=== PATIENT | male | born 1965 | race Caucasian/White ===

== ENCOUNTER 2019-05-04 23:12 | Emergency (ER) | payer BC ==
[~2019-05-04] VITALS: Ht 167.6 cm; Wt 124.7 kg
[2019-05-04 23:15] VITALS: BP 117/64
--- NOTE | 2019-05-04 23:15 | NUR ---
ED Nurse Note: Patient BIBA RA41 from home c/o SOB. Per EMS, albuterol given en route. Noted with wheezes on bilateral lungs more on the left side. Pt is a smoker. Not in any distress. 98% RA. Pt placed on monitor and storage bin tender. ERMD at bedside. Will cont to monitor.
--- NOTE | 2019-05-04 23:17 | NUR ---
ED Nurse Note: IV line established. Blood specimen collected and sent to lab.
--- NOTE | 2019-05-04 23:19 | Emergency Room Report ---
History of Present Illness General Chief Complaint: Upper Respiratory Illness Source: Patient Present Illness [facility] This a 54-year-old male with no past medical history. He is a long-term smoker. Started 2016. Usually smokes a pack and a half a day. He presents with chief complaint of shortness of breath. He woke up short of breath and could not breathe. He called 911. Per EMS he was dyspneic and oxygenation was 90%. Slight wheezing. He was given a breathing treatment. He said he felt better now. He uses his brothers [employer]. It did not help today. He said before when he had problem it would help. No nausea no vomiting. No fever chills but no chest pain. Worse with exertion. Worse with lying flat. Better after breathing treatment. Allergies: Coded Allergies: No Known Allergies (Unverified , 05/04/19) Patient History Past Medical History: see triage record, old chart reviewed Past Surgical History: none Pertinent Family History: none Social History: Reports: smoking Immunizations: other Reviewed Nursing Documentation: PMH: Agreed; PSxH: Agreed Nursing Documentation-PMH Past Medical History: No Stated History Review of Systems Eye: Denies: eye pain, blurred vision ENT: Denies: ear pain, nose congestion, throat swelling Respiratory: Reports: shortness of breath; Denies: cough Cardiovascular: Denies: chest pain, palpitations Gastrointestinal: Denies: abdominal pain, diarrhea, nausea, vomiting Musculoskeletal: Denies: back pain, joint pain Skin: Denies: rash Neurological: Denies: headache, numbness Endocrine: Denies: increased thirst, increased urine Hematologic/Lymphatic: Denies: easy bruising All Other Systems: negative except mentioned in HPI Physical Exam Vital Signs Date Time Temp Pulse Resp B/P (MAP) Pulse Ox O2 Delivery O2 Flow Rate FiO2 05/04/19 23:12 98.4 108 16 150/116 (127) 95 Room Air Vitals with high blood pressure Sp02 EP Interpretation: reviewed, normal General Appearance: well appearing, alert, mild distress, obese Head: normocephalic, atraumatic Eyes: bilateral eye PERRL, bilateral eye EOMI ENT: hearing grossly normal, normal pharynx Neck: full range of motion, supple, no meningismus Respiratory: chest non-tender, decreased breath sounds, accessory muscle use, wheezing - Slight Cardiovascular #1: regular rate, rhythm, no murmur Gastrointestinal: normal bowel sounds, non tender, no mass, no organomegaly, no bruit, non-distended Musculoskeletal: back normal, normal range of motion, gait/station normal, swelling - Trace pitting edema Psychiatric: mood/affect normal Medical Decision Making Diagnostic Impression: Primary Impression: COPD with exacerbation Additional Impression: Diabetes mellitus, new onset ER Course Patient with coughing and wheezing. Better after breathing treatment. Oxygenation normal. No longer wheezing. Heart rate normalized. I see no evidence of ACS, PE, dissection to name a few. He does appear to have new onset diabetes. He has glucose in his urine and glucose is elevated in the blood. No evidence of endorgan damage. No evidence of DKA. His blood pressure is normal now. Will discharge home. EKG Diagnostic Results Rate: tachycardiac Rhythm: NSR ST Segments: no acute changes Rhythm Strip Diag. Results Rate: 98 Rhythm: NSR, no PVC's Chest X-Ray Diagnostic Results Chest X-Ray Diagnostic Results : Chest X-Ray Ordered: Yes # of Views/Limited/Complete: 1 View Indication: Shortness of Breath EP Interpretation: Yes Interpretation: no consolidation, no effusion, no pneumothorax, no acute cardiopulmonary disease Impression: No acute disease Electronically Signed by: Romero Chacon MD Last Vital Signs Date Time Temp Pulse Resp B/P (MAP) Pulse Ox O2 Delivery O2 Flow Rate FiO2 05/04/19 23:12 98.4 108 16 150/116 (127) 95 Room Air Status: improved Disposition: HOME, SELF-CARE Condition: Stable Scripts Prednisone* (PREDNISONE*) 20 Mg Tablet 40 MG ORAL DAILY, #10 TAB Prov: Romero Chacon MD 05/05/19 Metformin Hcl* (METFORMIN HCL*) 500 Mg Tablet 500 MG ORAL TWICE A DAY, #60 TAB Prov: Romero Chacon MD 05/05/19 Albuterol Sulfate* (ALBUTEROL SULFATE MDI*) 8.5 Gm Hfa.aer.ad 2 PUFF INH Q4H PRN for cough/wheezing, #1 EA 0 Refills Prov: Romero Chacon MD 05/05/19 Additional Instructions: Follow-up with your doctor in 7 days. Return if symptoms worsen. Stop smoking. Romero Chacon MD May 04, 2019 23:19
--- NOTE | 2019-05-04 23:25 | NUR ---
ED Nurse Note: Xray at bedside.
[2019-05-04] MEDS ORDERED: Ipratropium 0.02% Inh Soln 2.5ml UD HHN ONE (23:30)
[2019-05-04] MEDS ORDERED: Albuterol ud Inhalation HHN ONE (23:30)
[2019-05-04] MEDS ORDERED: Solu-MEDROL 125mg Inj IVP ONE (23:30)
--- NOTE | 2019-05-04 23:31 | NUR ---
ED Nurse Note: RT at bedside for breathing tx.
[2019-05-04 23:36] LABS: BASOPHILS % (AUTO) 1.7 % (0.0-2.0); EOSINOPHILS % (AUTO) 4.6 % (0.0-3.0); HEMATOCRIT 40.3 % (42.0-52.0); HEMOGLOBIN 14.6 G/DL (14.2-18.0); LYMPHOCYTES % (AUTO) 23.6 % (20.0-45.0); MEAN CORPUSCULAR VOLUME 82 FL (80-99); MONOCYTES % (AUTO) 3.9 % (1.0-10.0); NEUTROPHILS % (AUTO) 66.2 % (45.0-75.0); PLATELET COUNT 292 K/UL (150-450); RED BLOOD COUNT 4.89 M/UL (4.70-6.10); RED CELL DISTRIBUTION WIDTH 10.8 % (11.6-14.8); WHITE BLOOD COUNT 9.1 K/UL (4.8-10.8)
[2019-05-04 23:47] LABS: ANION GAP 12 mmol/L (5-15); BLOOD UREA NITROGEN 14 mg/dL (7-18); CALCIUM 8.4 MG/DL (8.5-10.1); CARBON DIOXIDE 25 MMOL/L (21-32); CHLORIDE 101 MMOL/L (98-107); POTASSIUM 3.3 MMOL/L (3.5-5.1); SODIUM 138 MMOL/L (136-145)
[2019-05-04 23:59] LABS: ALANINE AMINOTRANSFERASE 27 U/L (12-78); ALBUMIN 3.1 G/DL (3.4-5.0); ALBUMIN/GLOBULIN RATIO 0.7 (1.0-2.7); ALKALINE PHOSPHATASE 87 U/L (46-116); ASPARTATE AMINO TRANSFERASE 20 U/L (15-37); BILIRUBIN,TOTAL 0.3 MG/DL (0.2-1.0)
[2019-05-05] MEDS ORDERED: Mylanta II UD 30ml ORAL ONE
--- NOTE | 2019-05-05 00:01 | NUR ---
ED Nurse Note: Urine specimen collected and sent to lab.
[2019-05-05 00:03] LABS: APPEARANCE,URINE CLEAR; BILIRUBIN, URINE NEGATIVE (NEGATIVE); GLUCOSE, URINE (UA) 4+ (NEGATIVE); KETONES,URINE 1+ (NEGATIVE); LEUKOCYTE ESTERASE ,URINE NEGATIVE (NEGATIVE); NITRITE,URINE NEGATIVE (NEGATIVE); PH,URINE 6.5 (4.5-8.0); PROTEIN,URINE 2+ (NEGATIVE); UROBILINOGEN,URINE 1 MG/DL (0.0-1.0)
[2019-05-05 00:04] LABS: COLOR,URINE YELLOW
[2019-05-05] MEDS ORDERED: METFORMIN HCL500 M1 ORAL (02:01)
[2019-05-05] MEDS ORDERED: ALBUTEROL SULF8.5 GM INH (02:01)
[2019-05-05] MEDS ORDERED: PREDNISONE20 MG ORAL (02:01)
[2019-05-05 02:09] VITALS: BP 109/67
--- NOTE | 2019-05-05 02:09 | NUR ---
ED Nurse Note: Pt cleared by ERMD for discharge. DC instructions/prescription was given and explained to pt and verbalized understanding of teachings. All medical deviecs such as ID band and IV line removed. Pt is AAO x4, ambulatory and left with all personal belongings. Pt will take an uber going home.
--- NOTE | 2019-05-05 10:12 | Diagnostic Imaging Report ---
Indication: Dyspnea Comparison: None A single view chest radiograph was obtained. Findings: Cardiomediastinal appearance is within normal limits for age. The lungs are clear. Pulmonary vascularity is appropriate. The diaphragmatic contour is smooth and costophrenic angles are sharp. No pleural effusions are identified. The bones are unremarkable. Impression: No acute findings
== END 2019-05-05 02:09 | disposition home or self-care (01) ==
LOC: EDBD 23:12 → EMR 23:35
DX: J44.1 Chronic obstructive pulmonary disease with (acute) exacerbation (principal); E11.9 Type 2 diabetes mellitus without complications; F17.200 Nicotine dependence, unspecified, uncomplicated
CPT/HCPCS: 36415; 71045; 80053; 81003; 83880; 84484; 85025; 93005; 96361; 96374; 99284; J2930; J7030